=== PATIENT | male | born 1995 | race Caucasian/White ===

== ENCOUNTER 2020-10-03 10:54 | Emergency (ER) | payer BC ==
[~2020-10-03] VITALS: Ht 182.9 cm; Wt 84.1 kg
[2020-10-03] MEDS ORDERED: CEPHALEXIN500 M1 PO (11:30)
[2020-10-03 11:48] VITALS: BP 128/64; PULSE 72; TEMP 98.4
== END 2020-10-03 11:50 | disposition home or self-care (01) ==
LOC: COL.ER 10:54
DX: S61.412A Laceration without foreign body of left hand, initial encounter (principal); W25.XXXA Contact with sharp glass, initial encounter; W45.8XXA Other foreign body or object entering through skin, initial encounter